=== PATIENT | female | born 1950 | race Two or more races ===

== ENCOUNTER 2025-05-22 13:56 | Outpatient (CLI) | payer MEDICARE | END 2025-05-22 13:57 | disposition home or self-care (01) | LOC: CSHWCC 13:56 | PROVIDERS: ATTEND Nurse Practitioner Family | DX: I83.021 Varicose veins of left lower extremity with ulcer of thigh (principal); E11.622 Type 2 diabetes mellitus with other skin ulcer; L97.121 Non-pressure chronic ulcer of left thigh limited to breakdown of skin; E11.22 Type 2 diabetes mellitus with diabetic chronic kidney disease; N18.30 Chronic kidney disease, stage 3 unspecified; E11.59 Type 2 diabetes mellitus with other circulatory complications | CPT/HCPCS: 11042; 97605; G0463; 99214 ==

== ENCOUNTER 2025-05-29 13:48 | Outpatient (CLI) | payer MEDICARE | END 2025-05-29 13:49 | disposition home or self-care (01) | LOC: CSHWCC 13:48 | PROVIDERS: ATTEND Nurse Practitioner Family | DX: I83.021 Varicose veins of left lower extremity with ulcer of thigh (principal); E11.622 Type 2 diabetes mellitus with other skin ulcer; L97.121 Non-pressure chronic ulcer of left thigh limited to breakdown of skin; E11.22 Type 2 diabetes mellitus with diabetic chronic kidney disease; N18.30 Chronic kidney disease, stage 3 unspecified; E11.59 Type 2 diabetes mellitus with other circulatory complications | CPT/HCPCS: 11042 ==

== ENCOUNTER 2025-06-12 14:41 | Outpatient (CLI) | payer MEDICARE | END 2025-06-12 14:42 | disposition home or self-care (01) | LOC: CSHWCC 14:41 | PROVIDERS: ATTEND Nurse Practitioner Family | DX: E11.622 Type 2 diabetes mellitus with other skin ulcer (principal); L97.121 Non-pressure chronic ulcer of left thigh limited to breakdown of skin; E11.51 Type 2 diabetes mellitus with diabetic peripheral angiopathy without gangrene; E11.22 Type 2 diabetes mellitus with diabetic chronic kidney disease; N18.30 Chronic kidney disease, stage 3 unspecified; I83.021 Varicose veins of left lower extremity with ulcer of thigh | CPT/HCPCS: 11042; G0463; 99213 ==

== ENCOUNTER 2025-06-20 14:58 | Outpatient (CLI) | payer MEDICARE | END 2025-06-20 14:59 | disposition home or self-care (01) | LOC: CSHWCC 14:58 | PROVIDERS: ATTEND Nurse Practitioner Family | DX: E11.622 Type 2 diabetes mellitus with other skin ulcer (principal); L98.499 Non-pressure chronic ulcer of skin of other sites with unspecified severity; S80.812D Abrasion, left lower leg, subsequent encounter; E11.51 Type 2 diabetes mellitus with diabetic peripheral angiopathy without gangrene; E11.22 Type 2 diabetes mellitus with diabetic chronic kidney disease; N18.30 Chronic kidney disease, stage 3 unspecified; I83.021 Varicose veins of left lower extremity with ulcer of thigh | CPT/HCPCS: 99213; G0463 ==

== ENCOUNTER 2025-06-27 11:26 | Outpatient (CLI) | payer MEDICARE | END 2025-06-27 11:27 | disposition home or self-care (01) | LOC: CSHWCC 11:26 | PROVIDERS: ATTEND Nurse Practitioner Family | DX: S80.812D Abrasion, left lower leg, subsequent encounter (principal); E11.622 Type 2 diabetes mellitus with other skin ulcer; L98.499 Non-pressure chronic ulcer of skin of other sites with unspecified severity; E11.51 Type 2 diabetes mellitus with diabetic peripheral angiopathy without gangrene; I83.021 Varicose veins of left lower extremity with ulcer of thigh; E11.22 Type 2 diabetes mellitus with diabetic chronic kidney disease; N18.30 Chronic kidney disease, stage 3 unspecified | CPT/HCPCS: 99213; G0463 ==

== ENCOUNTER 2025-07-04 11:05 | Outpatient (CLI) | payer MEDICARE | END 2025-07-04 11:06 | disposition home or self-care (01) | LOC: CSHWCC 11:05 | PROVIDERS: ATTEND Nurse Practitioner Family | DX: S80.811D Abrasion, right lower leg, subsequent encounter (principal); S80.812D Abrasion, left lower leg, subsequent encounter; I83.021 Varicose veins of left lower extremity with ulcer of thigh; E11.622 Type 2 diabetes mellitus with other skin ulcer; L97.129 Non-pressure chronic ulcer of left thigh with unspecified severity; E11.22 Type 2 diabetes mellitus with diabetic chronic kidney disease; N18.30 Chronic kidney disease, stage 3 unspecified; E11.51 Type 2 diabetes mellitus with diabetic peripheral angiopathy without gangrene | CPT/HCPCS: 99212; G0463 ==